=== PATIENT | female | born 1990 | race Caucasian/White ===

== ENCOUNTER 2016-12-21 15:30 | Observation (INO) ==
--- NOTE | 2016-12-21 16:55 | History and Physical Update ---
History and Physical Update - Dictation Physical: refer to scanned H&P - Physical Exam Mental Status: alert and oriented Heart: regular rate and rhythm Lung: clear to auscultation Abdomen: within normal limits Vitals: within normal limits History and Physical Changes: Pt is S/P RTLH, bilateral salpingectomy, LO and placement of Solyx suburethral sling on 11/28/16 without complication. She had sudden onset of bright red vaginal bleeding at 1500 today. Exam by me in the ER showed an area at mid cuff with bright red bleeding. Vaginal packing placed. Discussed findings with pt and . Plan EUA, surgery as indicated with possible placement of stitch to cuff. Surgery notified.
[2016-12-21] MEDS ORDERED: LACTATED RINGERS 1,000 ML IV SCH (17:00)
[2016-12-21] MEDS ORDERED: ceFAZolin 1,000 MG VIAL ONE (17:02)
[2016-12-21 17:15] LABS: Basophils # 0.1 10*3/uL (0.0-0.2); Basophils % 0.9 % (0.0-0.8); Eosinophils # 0.5 10*3/uL (0.0-0.87); Eosinophils % 6.4 % (0.00-10.9); Hematocrit 34.3 VOL% (35.7-47.0); Hemoglobin 10.9 GM/DL (12.0-16.0); Immature Granulocytes % 0.2 %; Immature Granulocytes Absolute 0.02 #; Lymphocytes % 23.9 % (21.3-54.2); Mean Corpuscular HGB Conc 31.8 GM/DL (32-36); Mean Corpuscular Hemoglobin 28 PG (27-34); Mean Corpuscular Volume 88.6 FL (87-102); Mean Platelet Volume 10.7 FL (9.6-12.0); Monocytes # 0.4 10*3/uL (0.11-0.8); Neutrophils # 5.4 10*3/uL (1.4-7.4); Neutrophils % 63.6 % (38.7-73.9); Platelet Count 406 T/CUMM (130-400); Red Blood Count 3.87 MC/CUMM (3.8-5.5); Red Cell Distribution Width 13.3 % (9.3-17.3); White Blood Count 8.5 T/CUMM (4-12)
[2016-12-21] MEDS ORDERED: ESTRADIOL 0.01% VAG CREAM 42.5 GM TUBE VAG ONE (18:25)
[2016-12-21] MEDS ORDERED: METOCLOPRAMIDE 10 MG/2 ML VIAL ONE (18:27)
[2016-12-21] MEDS ORDERED: FAMOTIDINE 20 MG/2 ML VIAL IV ONE (18:27)
[2016-12-21] MEDS ORDERED: CITRIC ACID/SODIUM CITRATE 30 ML UDCUP PO ONE (18:28)
[2016-12-21] MEDS ORDERED: FAMOTIDINE 20 MG/2 ML VIAL IV STA (18:28)
[2016-12-21] MEDS ORDERED: METOCLOPRAMIDE 10 MG/2 ML VIAL IV STA (18:28)
[2016-12-21] MEDS ORDERED: CITRIC ACID/SODIUM CITRATE 30 ML UDCUP ONE (18:30)
[2016-12-21] MEDS ORDERED: ONDANSETRON 4 MG/2 ML VIAL ONE (19:01)
[2016-12-21] MEDS ORDERED: SUCCINYLCHOLINE 200 MG/10 ML VIAL ONE (19:01)
[2016-12-21] MEDS ORDERED: PROPOFOL 200 MG/20 ML VIAL IV ONE (19:01)
[2016-12-21] MEDS ORDERED: LIDOCAINE 2% 5 ML VIAL ONE (19:01)
[2016-12-21] MEDS ORDERED: oxyCODONE/ACETAMINOPHEN 5-325 MG TABLET PO PRN (19:30)
[2016-12-21] MEDS ORDERED: BENZOCAINE/MENTHOL LOZENGE 18/BOX PO PRN (19:30)
[2016-12-21] MEDS ORDERED: BISACODYL 10 MG SUPP RECTAL PRN (19:30)
[2016-12-21] MEDS ORDERED: IBUPROFEN 800 MG TABLET PO PRN (19:30)
[2016-12-21] MEDS ORDERED: DOCUSATE SODIUM 100 MG CAPSULE PO PRN (19:30)
[2016-12-21] MEDS ORDERED: MAGNESIUM HYDROXIDE SUSP 30 ML UDCUP PO PRN (19:30)
[2016-12-21] MEDS ORDERED: ACETAMINOPHEN 325 MG TABLET PO PRN (19:30)
[2016-12-21] MEDS ORDERED: ONDANSETRON 4 MG/2 ML VIAL IV PRN (19:30)
--- NOTE | 2016-12-21 19:55 | Anesthesia Post-Op ---
Anesthesia Post OP - Post Ansesthetic Evaluation Patient seen in post op: Yes Resp: within normal limits CV: within normal limits Mental: within normal limits Temp: within normal limits [id number]: within normal limits Nausea and Vomiting: within normal limits Pain: within normal limits
[2016-12-21] MEDS ORDERED: fentaNYL 100 MCG/2 ML VIAL ONE (20:04)
[2016-12-21] MEDS ORDERED: MIDAZOLAM 2 MG/2 ML VIAL ONE (20:04)
[2016-12-21] MEDS: LACTATED RINGERS 1,000 ML IV SCH (20:40)
[2016-12-22 01:20] LABS: Apearance,Urine Slightly Hazy (Clear); Bacteria,Urine Occasional /HPF (Few); Bilirubin,Urine Negative (Negative); Blood, Urine Negative (Negative); Glucose,Urine (UA) Negative (Negative); Ketones,Urine Negative (Negative); Mucus,Urine Occasional /LPF (Occasional); Nitrite,Urine Negative (Negative); Protein,Urine Negative; RBC,Urine 1 /HPF (0-4); Squamous Epithelial Cell,Urine Occasional /HPF (0-10); Urine Color Yellow (Yellow); Urine Specific Gravity 1.023 (1.001-1.035); Urine Urobilinogen < 2.0 EU/DL (0.2-1.0); WBC,Urine 2 /HPF (0-6)
[2016-12-22 05:10] LABS: Basophils # 0.1 10*3/uL (0.0-0.2); Basophils % 0.8 % (0.0-0.8); Eosinophils # 0.6 10*3/uL (0.0-0.87); Eosinophils % 8.2 % (0.00-10.9); Hematocrit 27.9 VOL% (35.7-47.0); Hemoglobin 8.7 GM/DL (12.0-16.0); Immature Granulocytes % 0.3 %; Immature Granulocytes Absolute 0.02 #; Lymphocytes # 2.6 10*3/uL (1.4-4.0); Lymphocytes % 35.3 % (21.3-54.2); Mean Corpuscular HGB Conc 31.2 GM/DL (32-36); Mean Corpuscular Hemoglobin 28 PG (27-34); Mean Corpuscular Volume 89.4 FL (87-102); Mean Platelet Volume 10.4 FL (9.6-12.0); Monocytes # 0.5 10*3/uL (0.11-0.8); Monocytes % 7.1 % (1.7-12.7); Neutrophils # 3.6 10*3/uL (1.4-7.4); Neutrophils % 48.3 % (38.7-73.9); Platelet Count 299 T/CUMM (130-400); Red Blood Count 3.12 MC/CUMM (3.8-5.5); Red Cell Distribution Width 13.6 % (9.3-17.3); White Blood Count 7.4 T/CUMM (4-12)
[2016-12-22] MEDS: LACTATED RINGERS 1,000 ML IV SCH (05:21)
[2016-12-22 07:33] VITALS: BP 88/50
== END 2016-12-22 10:50 | disposition home or self-care (01) ==
LOC: N.EDINP 15:30 → N.ED 15:30 → N.EDINP 19:00 → N.OB 20:15
PROVIDERS: ADMIT Obstetrics & Gynecology; ATTEND Obstetrics & Gynecology